=== PATIENT | male | born 1975 | race Caucasian/White ===

== ENCOUNTER 2021-12-10 22:57 | Emergency (ER) | payer OTHER ==
[~2021-12-10] VITALS: Ht 180.3 cm; Wt 105.7 kg
[2021-12-10] MEDS ORDERED: IBUPROFEN 600 MG TABLET PO ONE (23:45)
[2021-12-10] MEDS ORDERED: IBUPROFEN 600 MG TABLET ONE (23:49)
[2021-12-11 00:39] VITALS: BP 139/89
--- NOTE | 2021-12-11 00:39 | NUR ---
Patient discharged to home in stable condition. Written and verbal after care instructions given. Patient verbalizes understanding of instructions. Stressed follow up or return to ER for worsening s/s. Patient out of ER with crutches, no falls noted, VSS, no acute signs of distress, all belongings taken, provided with copy of xray results.
== END 2021-12-11 00:39 | disposition home or self-care (01) ==
LOC: ER 22:57
DX: S82.65XA Nondisplaced fracture of lateral malleolus of left fibula, initial encounter for closed fracture (principal); W18.43XA Slipping, tripping and stumbling without falling due to stepping from one level to another, initial encounter; Y92.89 Other specified places as the place of occurrence of the external cause; Z88.0 Allergy status to penicillin
CPT/HCPCS: 73610; A4663